=== PATIENT | female | born 1960 | race Caucasian/White ===

== ENCOUNTER 2016-09-10 01:46 | Emergency (ER) | payer OTHER ==
[~2016-09-10] VITALS: Ht 160 cm; Wt 63.8 kg
[~2016-09-10 01:46] MED LIST: ADVIL200 M2 PO; BENADRYL25 M1 PO; DOXYCYCLINE PO; FLEXERIL10 MG PO; IBUPROFEN800 MG PO; LORTAB 5/500 TA1 TA1 PO; NAPROSYN250 M1 PO; NO MEDICATIONS; PERMETHRIN TOP; SUDAFED60 MG DOB; VICODIN 5/1 TAB 5/50 PO; VOLTAREN50 MG PO
== END 2016-09-10 02:51 | disposition home or self-care (01) ==
LOC: SED 01:46
DX: T63.461A Toxic effect of venom of wasps, accidental (unintentional), initial encounter (principal); F17.200 Nicotine dependence, unspecified, uncomplicated; Z88.5 Allergy status to narcotic agent; Y92.830 Public park as the place of occurrence of the external cause
CPT/HCPCS: 96372; 99283; J2930